=== PATIENT | female | born 2000 | race Caucasian/White ===

== ENCOUNTER 2021-06-24 23:15 | Emergency (ER) | payer SELFPAY ==
[~2021-06-24] VITALS: Ht 165.1 cm; Wt 68.9 kg
[2021-06-24 23:15] VITALS: BP 93/50
--- NOTE | 2021-06-24 23:15 | NUR ---
21 YO F BIBA WITH C/C OF N/V S/P ETOH. PER EMS PT HAD N/V. PER FRIENDS PT MAY HAVE HAD MORE THAN 6 SHOTS. PT OPENS EYES TO SOUND, UNABLE TO SPEAK, NO PURPOSFUL MOVEMENTS. PT PLACED ON RETORT SETTER. BLOOD SUGAR 125,NO HX, ALLERGIES OR RX PER EMS
--- NOTE | 2021-06-24 23:17 | NUR ---
PT BROUGHT O BED 4 VIA PRANEETH SLAUGHTER
[2021-06-24] MEDS ORDERED: NACL 0.9% 1,000 ML IV ONE (23:25)
[2021-06-24] MEDS ORDERED: ONDANSETRON 4 MG/2 ML VIAL IVP ONE (23:45)
[2021-06-24 23:49] LABS: BASOPHILS % (AUTO) 0.7 % (0.0-2.0); EOSINOPHILS # (AUTO) 0.1 K/uL (0-0.4); EOSINOPHILS % (AUTO) 1.7 % (0.0-4.0); HEMATOCRIT 32.8 % (36-48); HEMOGLOBIN 10.6 g/dL (12.0-16.0); LYMPHOCYTES # (AUTO) 2.3 K/uL (2.5-16.5); LYMPHOCYTES % (AUTO) 33.1 % (20.5-51.1); MEAN CORPUSCULAR HEMOGLOBIN 25 pg (27-31); MEAN CORPUSCULAR HGB CONC 32 g/dL (33-37); MEAN CORPUSCULAR VOLUME 77.4 fL (80-94); MONOCYTES # (AUTO) 0.5 K/uL (0.8-1.0); NEUTROPHILS # (AUTO) 3.9 K/uL (1.8-7.7); NEUTROPHILS % (AUTO) 57.5 % (42.2-75.2); PLATELET COUNT (AUTO) 340 K/uL (140-450); RED BLOOD CELL COUNT(AUTO) 4.23 MIL/uL (4.20-5.40); WHITE BLOOD COUNT (AUTO) 6.8 K/uL (4.5-11.0)
--- NOTE | 2021-06-24 23:50 | NUR ---
PT IS AWAKE, ABLE TO STATE NAME. ONE EPISODE OF VOMITING. PT IN HIGH FOWLERS, HEAD TO SIDE. BED LOCKED IN LOWEST POSITION, SIDE RAIL X2. PT ON [employer] FACER.
[2021-06-25 00:09] LABS: ALBUMIN 3.4 g/dL (3.4-5.0); ANION GAP 14.1 (8-16); CARBON DIOXIDE 25.1 mmol/L (21-32); CREATININE 0.7 mg/dL (0.6-1.3); POTASSIUM 3.2 mmol/L (3.5-5.1); TOTAL BILIRUBIN 0.1 mg/dL (0.0-1.0)
--- NOTE | 2021-06-25 01:18 | NUR ---
LEANA SIMS SISTER [phone]
--- NOTE | 2021-06-25 01:20 | NUR ---
pt had an episode of vomiting.
[2021-06-25] MEDS ORDERED: NACL 0.9% 1,000 ML IV ONE (02:05)
--- NOTE | 2021-06-25 03:30 | NUR ---
pt has eyes closed, opens to sound. pt is able to follow commands and verbalizes needs. all needs met at this time.
--- NOTE | 2021-06-25 04:34 | NUR ---
pt is A&O x4. pt states she just feels tried. pt given belongings back. explained to pt if she feels well enough to go, can ambulate, and has a safe ride & place to go we can work on her getting discharged soon. pt stated ok. vss. pt is in stable condition. all needs met at this time.
--- NOTE | 2021-06-25 05:30 | NUR ---
pt ambulated to with steady gait. provided with clothing. pt states she is ready to go home and is able to get an uber back to dorm.
[2021-06-25 06:15] VITALS: BP 99/60
--- NOTE | 2021-06-25 06:15 | NUR ---
Patient discharged with v/s stable. Written and verbal after care instructions given and explained. Patient verbalized understanding. Ambulatory with steady gait. All questions addressed prior to discharge. Advised to follow up with PMD.
== END 2021-06-25 06:15 | disposition home or self-care (01) ==
LOC: MED 23:15
DX: F10.129 Alcohol abuse with intoxication, unspecified (principal); E86.0 Dehydration
CPT/HCPCS: 36415; 80053; 85025; 96361; 96374; 99283; G0482; J2405; J7030